=== PATIENT | male | born 1990 | race African-American/Black ===

== ENCOUNTER 2022-08-27 14:25 | Emergency (ER) | payer BC ==
[2022-08-27] MEDS ORDERED: Ofloxacin 0.3% Ophth Soln 5 ML Bottle EARRT ONE (14:51)
== END 2022-08-27 15:35 | disposition home or self-care (01) ==
LOC: MW.ED 14:25
DX: H66.001 Acute suppurative otitis media without spontaneous rupture of ear drum, right ear (principal); H60.501 Unspecified acute noninfective otitis externa, right ear
CPT/HCPCS: 99282; A9270; 99283